=== PATIENT | female | born 1945 | race American Indian/Alaskan Native ===

== ENCOUNTER 2016-11-03 11:37 | Day surgery (SDC) | payer MEDICARE ==
[~2016-11-03 11:37] MED LIST: IOPIDINE ONE; MYDRIACYL ONE; NEO SYNEPHRINE ONE; NEOFRIN ONE
[2016-11-03] MEDS ORDERED: IOPIDINE OS ONE (11:54)
[2016-11-03] MEDS ORDERED: ISOPTO CARPINE ONE (12:11)
[2016-11-03 12:23] VITALS: BP 126/86
[2016-11-03] MEDS ORDERED: TETRACAINE 0.5% OS ONE (12:54)
[2016-11-03] MEDS ORDERED: GONAK OS ONE (12:55)
== END 2016-11-03 11:38 | disposition home or self-care (01) ==
LOC: OR 11:37
PROVIDERS: ATTEND Specialist
DX: H40.10X0 Unspecified open-angle glaucoma, stage unspecified (principal)
CPT/HCPCS: J2370

== ENCOUNTER 2016-11-16 11:20 | Day surgery (SDC) | payer MEDICARE ==
[2016-11-16] MEDS ORDERED: IOPIDINE ONE (11:48)
[2016-11-16] MEDS ORDERED: NEOFRIN ONE (11:48)
[2016-11-16] MEDS ORDERED: MYDRIACYL ONE (11:48)
[2016-11-16] MEDS ORDERED: GONAK ONE (12:00)
[2016-11-16] MEDS ORDERED: TETRACAINE 0.5% ONE (12:00)
[2016-11-16] MEDS ORDERED: CYCLOGYL ONE (12:01)
[2016-11-16] MEDS ORDERED: TOBRADEX ONE (12:01)
[2016-11-16] MEDS ORDERED: XYLOCAINE 2%/ EPI 1:200,000 INFILTRATI ONE (12:02)
[2016-11-16] MEDS ORDERED: XYLOCAINE 2%/EPI 1:100,000 INFILTRATI ONE (12:04)
[2016-11-16] MEDS ORDERED: IOPIDINE OD ONE (12:43)
[2016-11-16 13:18] VITALS: BP 142/90
[2016-11-16] MEDS ORDERED: TETRACAINE 0.5% OD ONE (13:24)
[2016-11-16] MEDS ORDERED: GONAK OD ONE (13:25)
== END 2016-11-16 13:32 | disposition home or self-care (01) ==
LOC: OR 11:20
PROVIDERS: ATTEND Specialist
DX: H40.1110 Primary open-angle glaucoma, right eye, stage unspecified (principal)